=== PATIENT | male | born 2005 | race Caucasian/White ===

== ENCOUNTER 2024-07-24 13:20 | Emergency (ER) | payer OTHER ==
[~2024-07-24] VITALS: Ht 190.5 cm; Wt 94.3 kg
[2024-07-24] MEDS ORDERED: ACET-683 PO (13:30)
[2024-07-24] MEDS ORDERED: IBUP200T46 PO (13:30)
[2024-07-24] MEDS: KETOROLAC 60MG 2ML VIAL IM ONE (13:52)
[2024-07-24] MEDS: BENZOCAINE 20% GEL 9GM TUBE (ANBESOL MAX STRENGTH) TOP ONE (14:16)
[2024-07-24 14:46] VITALS: BP 128/65; TEMP 97.9; O2SAT 99
== END 2024-07-24 14:48 | disposition home or self-care (01) ==
LOC: M ED 13:20
DX: S00.512A Abrasion of oral cavity, initial encounter (principal); K08.89 Other specified disorders of teeth and supporting structures; X58.XXXA Exposure to other specified factors, initial encounter; Y92.9 Unspecified place or not applicable; Y93.9 Activity, unspecified; Y99.9 Unspecified external cause status
CPT/HCPCS: 96372; 99283; J1885